=== PATIENT | female | born 1995 | race Caucasian/White ===

== ENCOUNTER 2017-07-15 04:49 | Emergency (ER) | payer SELFPAY ==
[~2017-07-15] VITALS: Ht 165.1 cm; Wt 82.4 kg
[2017-07-15] MEDS ORDERED: LORA10CA PO (05:08)
[2017-07-15] MEDS ORDERED: KETOROLAC 30 MG/1 ML ONE ×2 (05:26→05:30)
[2017-07-15] MEDS ORDERED: DIAZEPAM 5 MG TABLET PO ONE (05:30)
[2017-07-15] MEDS ORDERED: KETOROLAC 30 MG/1 ML IM ONE (05:30)
[2017-07-15 05:44] LABS: HCG UR OBC PASS
[2017-07-15] MEDS ORDERED: DIAZEPAM 5 MG TABLET ONE (05:49)
[2017-07-15 06:20] VITALS: BP 113/75
== END 2017-07-15 06:23 | disposition home or self-care (01) ==
LOC: ED 06:10
DX: M54.5 Low back pain (principal); M54.6 Pain in thoracic spine
CPT/HCPCS: 81025; 96372; 99283; J1885